=== PATIENT | female | born 1995 | race African-American/Black ===

== ENCOUNTER 2016-08-05 10:02 | Emergency (ER) | payer OTHER ==
[~2016-08-05] VITALS: Ht 172.7 cm; Wt 81.7 kg
[2016-08-05] MEDS ORDERED: OFEV100 MG PO (10:09)
[2016-08-05] MEDS ORDERED: PREDNISONE 20 M20 MG PO (12:30)
[2016-08-05 13:00] VITALS: BP 123/75
== END 2016-08-05 13:00 | disposition home or self-care (01) ==
LOC: ER 10:02
DX: J84.10 Pulmonary fibrosis, unspecified (principal)

== ENCOUNTER 2018-06-15 04:40 | Inpatient (IN) | payer OTHER ==
[~2018-06-15] VITALS: Ht 172.7 cm; Wt 81.6 kg
[~2018-06-15 04:40] MED LIST: BENTYL 20 MG TA20 M1 PO; MIRALAX17 GM PO; OFEV100 MG PO; PREDNISONE 20 M20 MG PO; ZANTAC 150MG T150 MG PO
[2018-06-15 04:45] VITALS: BP 121/73
[2018-06-15 05:06] LABS: ABSOLUTE NEUTROPHILS 7.4 thou/uL (1.4-8.2); BASOPHILS 1.1 % (0.0-2.0); EOSINOPHILS 2.2 % (0.0-3.0); HEMATOCRIT 42.1 % (37.0-47.0); HEMOGLOBIN 14.1 gm/dL (12.0-15.0); LYMPHOCYTES 21.2 % (24.0-44.0); MCH 28.6 pg (26.0-34.0); MCHC 33.4 g/dL (28.0-37.0); MCV 85.8 fL (80.0-100.0); MONOCYTES 6.5 % (1.0-8.0); PLATELET COUNT 305 thou/uL (150-400); RBC 4.91 mil/uL (4.20-5.00); RDW 14.5 % (10.5-14.5); WBC 10.7 thou/uL (4.0-11.0)
[2018-06-15 05:12] LABS: ANION GAP 9 mmol/L (7-16); BUN 14 mg/dL (7-18); CALCIUM 8.9 mg/dL (8.5-10.1); CHLORIDE 103 mmol/L (98-107); CO2 27 mmol/L (21-32); CREATININE 0.8 mg/dL (0.6-1.0); GLUCOSE 105 mg/dL (74-106); POTASSIUM 3.6 mmol/L (3.5-5.1); SODIUM 139 mmol/L (136-145)
[2018-06-15 05:21] LABS: TROPONIN-I <0.06 ng/mL (<0.06)
[2018-06-15 06:14] LABS: URINE BILIRUBIN NEGATIVE (Negative); URINE BLOOD NEGATIVE (Negative); URINE CLARITY CLEAR; URINE COLOR YELLOW; URINE GLUCOSE-RANDOM* NEGATIVE (Negative); URINE KETONES 1+ (Negative); URINE LEUKOCYTES NEGATIVE (Negative); URINE NITRITE NEGATIVE (Negative); URINE PROTEIN (DIPSTICK) NEGATIVE (Negative); URINE SPECIFIC GRAVITY >= 1.030 (1.005-1.035); URINE UROBILINOGEN 0.2 E.U./dl (0.2-1.0)
[2018-06-15 07:00] VITALS: BP 121/73
--- NOTE | 2018-06-15 07:09 | NUR ---
HANDOFF FAXED AT 0823.
[2018-06-15 09:00] VITALS: BP 113/80
--- NOTE | 2018-06-15 10:34 | NUR ---
22 YO FEMALE ADMITTED TO 424 BY CART FROM ER. A&OX4, IV INTACT IN L AC. AMBULATES SELF. WITHOUT O2 UPON ADMIT O2 SAT WAS 97%. LUNG SOUNDS ARE SLIGHTLT DIMINISHED. SOA ON ANY EXCERTION. ORIENTED PT TO ROOM/ CALL LIGHT W/I REACH. WILL START POC.
--- NOTE | 2018-06-15 14:38 | NUR ---
PT ADMITTED RELATED TO SOB. CM REVIEWED CHART AND SPOKE WITH CARE TEAM. CM MET WITH PT AT BEDSIDE. PT IS A&O X4. CM ROLE INTRODUCED. PT INDICATED SHE LIVES IN A HOUSE WITH HER MOTHER WITH 1 STEP TO ENTER AND NO STEPS INSIDE. 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 PT INDICATED SHE HAD HH WHEN SHE WAS INITIALLY DISGNOSED BUT CAN'T RECALL PROVIDER. PT INDICATED SHE PLANS TO RETURN HOME ONCE MEDICALLY STABLE. CM TO FOLLOW INDICATED WITH DC PLANNING.
[2018-06-15 17:13] VITALS: BP 131/72
--- NOTE | 2018-06-15 17:13 | EKG ---
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: NIGHAT : 1995 Requested By: Fatou Bedoya Order Number: [id number] MD: Carrillo Cristobal Measurements Intervals [place] Rate: 124 P: 16 TN: 110 QRS: 9 QRSD: 75 T: 211 QT: 399 QTc: 574 Interpretive Statements Sinus tachycardia Nonspecific T abnormalities, diffuse leads Prolonged QT interval No previous ECG available for comparison Electronically Signed On 06-15-2018 17:12:50 CDT by Carrillo Cristobal [email or web address] ��������������������������������������������� <ELECTRONICALLY SIGNED> ���������������������������������������� By: Carrillo Cristobal MD, [facility] ��������������������������������������������� 06/15/18 1712 0451 0451 Carrillo Cristobal MD, FACC /EPI
[2018-06-15 19:40] VITALS: BP 119/76
[2018-06-15 21:57] VITALS: BP 165/93
[2018-06-16 04:24] VITALS: BP 115/59
[2018-06-16 08:35] VITALS: BP 118/64
--- NOTE | 2018-06-16 11:07 | NUR ---
PT A&OX4, AMBULATES SELF TO BRP. C/O HEADACHE AND LEG CRAMPS STATES SHE GETS THIS WHEN ON STEROIDS. IV INTACT, RECEIVING ANTIBIOTIC AND SOLUMEDROL. TYLENOL GIVEN FOR PAIN. WILL CONT POC.
[2018-06-16 16:28] VITALS: BP 99/63
[2018-06-16 19:45] VITALS: BP 101/60
--- NOTE | 2018-06-16 20:24 | HC ---
[facility] [place] [address] CONSULTATION Name: DENNISE CARRANZA Room #: 424-P ADM IN M.R.#: [id number] Admission: 06/15/18 ������������������ Attend Phys: Joshua Rogers MD Discharge: ������������������ Date of : [birth year] Report #: [id number] THIS REPORT FOR: //name// CC: OCTAVIANO Rogers DATE OF SERVICE: 06/15/2018 INFECTIOUS DISEASE CONSULTATION: REASON FOR CONSULTATION: Evaluate community-acquired pneumonia in the setting of pulmonary fibrosis. HISTORY OF PRESENT ILLNESS: The patient was a 22-year-old with underlying idiopathic pulmonary fibrosis who is followed at [facility] on the lung transplant list. She had been treated several years ago with steroids and Cytoxan. She stabilized on this program. Subsequently, she has shown progression. No further treatment options have been reported. She uses oxygen 2 liters per nasal cannula as needed. Three weeks ago, had dental extractions of her wisdom teeth. Treated with a week of amoxicillin. These healed in nicely. Over the last week, she has had progressive shortness of breath with cough and increased sputum production. Yesterday, she got to the point she could not catch her breath and she was coughing up white colored sputum without hemoptysis. She was having some mild pleuritic chest pain, mostly in the lower lobes. No nausea, vomiting or diarrhea. No rashes. No fever, chills or sweats. She has not had a flu shot. She works from home. She lives with her mother, has otherwise been well. No travel outside the [place]. No history of HIV or tuberculosis. The patient has been screened in her pretransplant workup. She was placed on corticosteroids and Levaquin last evening and has shown improvement today. No previous pneumonia. ALLERGIES: None. MEDICATIONS: As noted on MAR including Solu-Medrol and Levaquin. PAST MEDICAL HISTORY: Pulmonary fibrosis, wisdom teeth extraction. FAMILY HISTORY: Noncontributory. SOCIAL HISTORY: Nonsmoker, no significant alcohol intake. REVIEW OF SYSTEMS: Ten-point review was negative other than what has been described above. PHYSICAL EXAMINATION: VITAL SIGNS: Afebrile and hemodynamically stable. [facility] [address] [place] [address] CONSULTATION Name: DENNISE CARRANZA Room #: 424-P [facility] IN .R.#: [id number] Admission: 06/15/18 ������������������ Attend Phys: Joshua Rogers MD Discharge: ������������������ Date of : [birth year] Report #: [id number] GENERAL: Alert and cooperative, in no acute distress. SKIN: Without rash or decubitus. No palpable adenopathy. HEENT: Eyes, without scleral icterus. Mouth without mucositis or lesion. NECK: Supple, with no thyromegaly or mass. LUNGS: With fine crackles in the bases bilaterally, no consolidation. HEART: Regular, without murmur, gallop or rub. ABDOMEN: Soft, nontender, no hepatosplenomegaly or mass. EXTREMITIES: Without clubbing, cyanosis or edema. Cranial nerves intact. Strength in the upper and lower extremities was normal with normal sensation to touch. Mood was normal. LABORATORY STUDIES: Urinalysis unremarkable. Chest x-ray, bilateral interstitial infiltrates. Creatinine 0.8. Hemoglobin 14, WBC 10.7, platelet count 305,000. Viral respiratory panel is pending. IMPRESSION: A 22-year-old with community-acquired pneumonia in the setting of pulmonary fibrosis. Would be concerned about viral etiology in addition to atypical bacteria. PLAN: Recommend continuing IV antibiotic therapy with Levaquin and add Tamiflu. Obtain sputum culture, urine antigens. Continue respiratory treatments as needed. ��������������������������������������������� <ELECTRONICALLY SIGNED> ���������������������������������������� By: Gonzales Bravo MD ��������������������������������������������� 06/16/184 1615 0350 Gonzales Bravo MD /nt
--- NOTE | 2018-06-17 03:51 | NUR ---
ASSUMED CARE AT 1900, ASSESSMENT COMPLETE. PT DENIES NAUSEA OR PAIN. REPORTS SOB WITH EXERTION, EVEN DEEP BREATHING IS LIMITED/SHALLOW, CRACKLES IN BASES. SLIGHTLY TACHY, DENIES CHEST PAIN/PRESSURE OR RACING HEART. UP AD SAARHY IN ROOM, CALLS APPROPRIATELY FOR NEEDS. NO OTHER CONCERNS, WILL CONTINUE TO MONITOR.
[2018-06-17 04:51] VITALS: BP 104/67
[2018-06-17 07:58] VITALS: BP 105/72
--- NOTE | 2018-06-17 10:21 | NUR ---
ASSUMED CARE OF PT AT 0700. ASSESSMENT COMPLETED. AM MEDS GIVEN ORDERED, SEE EMAR. DENIES PAIN, N/V/D. LBM TODAY. ROOM AIR. CRACKLES NOTED IN BASES, AT BASELINE. HX CYSTIC FIBROSIS. DENIES SOA. BREATHING TX SCHEDULED. FAMILY AT BEDSIDE. FLU VACCINE HELD, WILL ASK PHYSICIAN IF OKAY TO ADMINISTER. WILL CONTINUE TO MONITOR.
[2018-06-17 16:35] VITALS: BP 111/67
--- NOTE | 2018-06-17 18:21 | NUR ---
PHYSICIAN NOTIFIED ABOUT FLU VACCINE AND REQUEST FOR ACID REFLUX MED FROM HOME. FAMOTIDINE ORDERED, SEE EMAR. RAPID INFLUENZA A/B SENT TO LAB. NO OTHER CHANGE IN STATUS.
[2018-06-17 20:55] VITALS: BP 104/67
--- NOTE | 2018-06-18 07:58 | NUR ---
ASSUMED CARE AT 1900, ASSESSMENT COMPLETED. PT DENIED PAIN OR NAUSEA. REPORTED BREATHING GREATLY IMPROVED, DENIED ANY SOA OR COUGH. UP AD SARAHY IN ROOM, URINATING WELL. ABLE TO SLEEP MOST OF NIGHT WITHOUT INTERRUPTION. POSSIBLE D/C HOME TODAY. NO OTHER CONCERNS, SHIFT REPORT GIVEN AT 0700.
[2018-06-18] MEDS ORDERED: MUCINEX600 MG PO (09:07)
[2018-06-18] MEDS ORDERED: OSELB75 PO (09:07)
[2018-06-18] MEDS ORDERED: LEVAQUIN 750 M750 MG PO (09:08)
[2018-06-18] MEDS ORDERED: PREDNISONE 10 M10 MG PO (09:08)
[2018-06-18 09:24] VITALS: BP 104/67
--- NOTE | 2018-06-18 10:28 | NUR ---
PT'S DISCHARGE PAPERWORK GONE OVER WITH PATIENT, SIGNED AND COPY IN CHART. RX'S GIVEN IV ACSESS DCD. PT W/O PAIN AT THIS TIME. PT TO TAKE SHOWER AND THEN DC TO HOME.
[2018-06-18 11:17] VITALS: BP 104/67
--- NOTE | 2018-06-18 11:18 | NUR ---
PT DISCHARGED AT THIS TIME TAKEN WITH ALL BELONGINGS VIA W/C TO FAMILY CAR.
[2018-06-18 22:05] LABS: ADENOVIRUS Negative (Negative); INFLUENZA A Negative (Negative); INFLUENZA B Negative (Negative); METAPNEUMOVIRUS Negative (Negative); PARAINFLUENZA 1 Negative (Negative); PARAINFLUENZA 2 Negative (Negative); PARAINFLUENZA 3 Negative (Negative); RHINOVIRUS Negative (Negative); RSV A Negative (Negative); RSV B Negative (Negative)
== END 2018-06-18 11:11 | disposition home or self-care (01) | DRG 871 ==
LOC: ER 04:40 → EROBS 06:25 → 4E 06:25
PROVIDERS: Student in an Organized Health Care Education/Training Program; ADMIT Internal Medicine
DX: A41.9 Sepsis, unspecified organism (principal); J18.9 Pneumonia, unspecified organism; J96.01 Acute respiratory failure with hypoxia; J98.11 Atelectasis; J84.112 Idiopathic pulmonary fibrosis; Z79.899 Other long term (current) drug therapy; Z23 Encounter for immunization
CPT/HCPCS: 10084